=== PATIENT | female | born 1940 | race Caucasian/White ===

== ENCOUNTER 2020-02-13 12:47 | Outpatient (CLI) | payer MEDICARE, SELFPAY ==
--- NOTE | 2020-02-13 12:56 | MM_ITS ---
WS: [id number] BILATERAL DIGITAL SCREENING MAMMOGRAPHY WITH CAD CLINICAL INFORMATION: SCREEN HISTORY: Screening mammogram. No current complaints. COMPARISON: TECHNIQUE: Bilateral CC and MLO views. FINDINGS: The breasts are composed of heterogeneous fibroglandular density tissue, which can limit the detectio n of small underlying mass lesions. No suspicious mass, asymmetry, calcifications, or architectural d istortion. No evidence of malignancy. Vascular calcification. Stable ovoid nodule outer left breast m easuring 4 mm. Left breast biopsy marker. MM/[id number] IMPRESSION: BI-RADS: 2-Benign FOLLOW UP: 1 Year Follow-up Recommend return to annual screening mammography.
== END 2020-02-13 12:48 | disposition home or self-care (01) ==
LOC: RADSHAW 12:50
PROVIDERS: PCP Internal Medicine; Visit Provider Internal Medicine
DX: Z12.31 Encounter for screening mammogram for malignant neoplasm of breast (principal)
CPT/HCPCS: 77067

== ENCOUNTER 2021-02-16 08:28 | Outpatient (CLI) | payer MEDICARE, SELFPAY ==
--- NOTE | 2021-02-16 08:37 | MM_ITS ---
WS: [id number] BILATERAL DIGITAL SCREENING MAMMOGRAPHY WITH CAD CLINICAL INFORMATION: SCREENING HISTORY: Screening mammogram. No current complaints. COMPARISON: February 13, 2020 TECHNIQUE: Bilateral CC and MLO views. FINDINGS: The breasts are composed of heterogeneous fibroglandular density tissue, which can limit the detectio n of small underlying mass lesions. No suspicious mass, asymmetry, calcifications, or architectural d istortion. No evidence of malignancy. Punctate and vascular calcifications. Biopsy clip left breast. MM/[id number] IMPRESSION: BI-RADS: 2-Benign FOLLOW UP: 1 Year Follow-up Recommend return to annual screening mammography.
== END 2021-02-16 08:29 | disposition home or self-care (01) ==
LOC: RADSHAW 08:34
PROVIDERS: PCP Internal Medicine; Visit Provider Internal Medicine
DX: Z12.31 Encounter for screening mammogram for malignant neoplasm of breast (principal)
CPT/HCPCS: 77067

== ENCOUNTER 2022-02-22 09:12 | Outpatient (CLI) | payer MEDICARE, SELFPAY ==
--- NOTE | 2022-02-22 09:27 | MM_ITS ---
WS: [id number] BILATERAL SCREENING DIGITAL TOMOSYNTHESIS MAMMOGRAM WITH CAD HISTORY: SCREENING COMPARISON: 12/24/2017, 01/02/2019, 02/13/2020 and 02/16/2021 Bilateral CC and MLO views with tomosynthesis and synthetic mammography submitted. Computer aided det ection analyzed. Breast composition: There are scattered areas of fibroglandular density. No suspicious masses, microc alcifications or architectural distortion. Long-term stability of the 2.0 x 1.4 x 2.1 cm mass in the upper outer quadrant of the RIGHT breast. Benign vascular calcifications in each breast. MM/[place] [id number] IMPRESSION: BI-RADS: 2-Benign FOLLOW UP: 1 Year Follow-up
== END 2022-02-22 09:13 | disposition home or self-care (01) ==
PROVIDERS: PCP Internal Medicine; Visit Provider Internal Medicine
DX: Z12.31 Encounter for screening mammogram for malignant neoplasm of breast (principal)
CPT/HCPCS: 77063; 77067

== ENCOUNTER → 2022-10-05 16:27 | Outpatient (BNVA) | payer MEDICARE, SELFPAY | PROVIDERS: PCP Internal Medicine; Visit Provider Obstetrics & Gynecology | DX: N95.0 Postmenopausal bleeding (principal) | CPT/HCPCS: 81000 ==

== ENCOUNTER 2023-01-21 19:42 | Emergency (ER) | payer MEDICARE, SELFPAY ==
--- NOTE | 2023-01-21 19:43 | XRR_ITS ---
PROCEDURE INFORMATION: Exam: XR Right Foot Exam date and time: 01/21/2023 8:10 PM Age: 82 years old Clinical indication: Injury or trauma; Fall; Blunt trauma; Right; Patient HX: Patient tripped and fell today. C/O foot pain with contusion and swelling to near entire dorsal surface across metatarsals. TECHNIQUE: Imaging protocol: Radiologic exam of the right foot. Views: 3 or more views. COMPARISON: No relevant prior studies available. FINDINGS: Bones/joints: Fractured bone fragment at the medial margin of 1st metatarsal tarsal joint. There is malalignment of the 1st metatarsal tarsal joint with a mild degree of lateral shifting of the 1st metatarsal bone relative to the medial cuneiform bone. Soft tissues: Soft tissue swelling over the dorsum of the foot. XR/XR foot RT min 3V* [id number] IMPRESSION: Avulsion fracture from the 1st metatarsal base or the medial cuneiform bone is suspected. There is mild subluxation of the 1st MTT joint raising suspicion for Lisfranc ligamentous injury. Recommend weight-bearing view correlation.
--- NOTE | 2023-01-21 19:43 | XRR_ITS ---
PROCEDURE INFORMATION: Exam: XR Right Ankle Exam date and time: 01/21/2023 8:10 PM Age: 82 years old Clinical indication: Injury or trauma; Fall; Blunt trauma; Ankle; Right; Patient HX: Patient tripped and fell today. C/O foot pain with contusion and swelling to near entire dorsal surface across metatarsals. TECHNIQUE: Imaging protocol: Radiologic exam of the right ankle. Views: 3 or more views. COMPARISON: No relevant prior studies available. FINDINGS: Bones/joints: Normal ankle mortise alignment. No ankle fracture. Soft tissues: Soft tissue swelling. XR/XR ankle RT min 3V* [id number] IMPRESSION: No osseous injury to the ankle apparent.
--- NOTE | 2023-01-21 19:51 | ED_ITS ---
HPI - Extremity Injury (Lower) General: Chief Complaint: Extremity Injury, Lower Stated Complaint: right foot injury Time Seen by Provider: 01/21/23 19:43 Source: patient Mode of arrival: ambulatory Limitations: no limitations History of Present Illness: 82-year-old female states she tripped over nice chest just prior to arrival and injured her right foot she has pain over the lateral portion of the top of her foot she rates a 7 out of 10 she states is not able to bear weight she does have a contusion. She has some mild ankle pain denies any other injuries denies hitting her head. Review of Systems Const: Denies: fever(s) or chills ENMT: Denies: throat pain or dental pain Card: Denies: chest pain Resp: Denies: dyspnea GI: Denies: abdominal pain, nausea, vomiting or diarrhea Musc: Reports: extremity pain; Denies: neck pain or back pain Skin/Breast: Denies: rash Neuro: Denies: headache(s) PFS ED PFSH: Medical History Hx of skin cancer, basal cell Hypertension Type 2 diabetes mellitus Surgical History H/O cosmetic surgery eye lift in 1990, ear lift 1990, contact lense implantation H/O hand surgery H/O: hysterectomy History of right oophorectomy Family History Father Hypertension Denies family history of Colon cancer Ovarian cancer Diabetes Heart disease Breast cancer Family history of thyroid problem Uterine cancer Stroke Physical Exam Const: COMMON NORMALS: no acute distress and patient oriented x3 HENMT: COMMON NORMALS: normocephalic and atraumatic HEAD & SCALP: normocephalic and atraumatic Eye: COMMON NORMALS: conjunctivae normal CONJUNCTIVA: Yes conjunctivae normal Neck/C-Spine: COMMON NORMALS: supple Chest: COMMONS NORMALS: normal inspection of the chest Resp: COMMON NORMALS: normal respiratory effort Extremity: NARRATIVE EXTREMITY EXAM: Contusion and tenderness over right foot Neuro: COMMON NORMALS: patient oriented x3 Psych: COMMON NORMALS: mental status grossly normal Skin: COMMON NORMALS: no rashes or lesions noted GENERAL SKIN EXAM: no rashes or lesions noted Course Vital Signs: Vital signs: Vital Signs Temperature 97.6 F 01/21/23 19:53 Pulse Rate 69 01/21/23 19:53 Respiratory Rate 17 01/21/23 19:53 Blood Pressure 171/67 01/21/23 19:53 Pulse Oximetry 95 01/21/23 19:53 Oxygen Delivery Me thod Room Air 01/21/23 19:53 MDM - Extremity Injury (Lower) Medical Decision Making Patient presents here with a right foot fracture metatarsal fracture patient placed in a splint is to use crutches nonweightbearing she is to follow-up with orthopedics return if worsening she understands agrees to plan. Medical Records I reviewed the patient's medical records. Lab Data I reviewed the patient's lab results. Discharge Plan Discharge Condition: Stable Prescriptions: No Action amlodipine 5 mg tablet 5 mg PO BID oujcfigf-kazi-vtvntq-hyalur ac [id number] mg tablet 1 tab PO BID Collagen Plus Vitamin C 125-740 mg capsule 1 cap PO DAILY melatonin 5 mg capsule 5 mg PO DAILY glipizide 5 mg tablet 5 mg PO DAILY estradiol [Estrace] 0.01 % (0.1 mg/gram) cream 0.5 g vaginal DAILY Qty: 42.5 1RF Rx Instructions: for nightly for 14 days and then twice weekly after that. lovastatin 40 mg tablet 40 mg PO QDAY levothyroxine 25 mcg capsule 137 mcg PO DAILY losartan-hydrochlorothiazide 100-12.5 mg tablet 2 tab PO DAILY Referrals: Tyree Valles DO [Primary Care Provider] - Coding Level of Care Code ED Pattern Chain Builder for Ab Garces
[2023-01-21 19:53] VITALS: BP 171/67; PULSE 69; RESP 17; TEMP 36.4; O2SAT 95; BMI 23.5
[2023-01-21] MEDS: HYDROcodone-acetaminophen 5-325 mg Tablet 1 TAB PO (20:35)
[2023-01-21 21:19] VITALS: BP 152/75; PULSE 64; RESP 18; O2SAT 96
--- NOTE | 2023-01-22 07:29 | DCPLANNER ---
Addendum entered by Zaida Blunt 01/24/23 11:13: Patient has a follow up appointment scheduled for Sunday, January 29, 2023 at 2:[address] Rodney at ortho. Original Note: urban renewal manager had message to schedule a follow up appointment for patient with ortho. urban renewal manager sent patients information to the front office staff at ortho. Patients information will be printed and reviewed. Clinic will call patient with appointment information.
== END 2023-01-21 21:20 | disposition home or self-care (01) ==
PROVIDERS: Emergency Provider Emergency Medicine; PCP Internal Medicine
DX: S92.311A Displaced fracture of first metatarsal bone, right foot, initial encounter for closed fracture (principal); Z79.84 Long term (current) use of oral hypoglycemic drugs; I10 Essential (primary) hypertension; E11.9 Type 2 diabetes mellitus without complications; W18.09XA Striking against other object with subsequent fall, initial encounter
CPT/HCPCS: 73610; 73630; 99283; E0114

== ENCOUNTER 2023-01-28 16:39 | Emergency (ER) | payer MEDICARE, SELFPAY ==
[2023-01-28 16:45] VITALS: BP 165/63; PULSE 72; TEMP 37.1; O2SAT 97
--- NOTE | 2023-01-28 17:06 | W.ED.EXTPRO ---
HPI - Extremity Problem General: Chief complaint: Extremity Injury, Lower Stated complaint: Right foot broke swelling/pain Time Seen by Provider: 01/28/23 16:46 History of Present Illness: 82-year-old female presents to the emergency department with 24 hours of pain in her right foot. She says she broke a dish and had an associated fall back on January 21, approximately 1 week ago. The x-ray report is transcribed below. She was in a posterior splint and has been nonweightbearing. Yesterday she started noticing some nervelike sharp shooting pains and throbbing in her right foot. She says this is unusual because she has had very little pain up until that point. Last night she also started having sweating in the middle of the night. She did not check her temperature. Today she took down the splint and wraps and saw that there was some discoloration to the top of her right foot. I took it off here in the emergency department and noticed that she has bright erythema, swelling, tenderness, warmth to the top of her right foot. After further discussion, we found out that when the dish broke it did cut her fourth toe. It was a relatively minor cut and it had already scabbed. However, she remembers that her foot was not washed before splinting. Right Foot Xray 01/21/23: Avulsion fracture from the 1st metatarsal base or the medial cuneiform bone is suspected. There is mild subluxation of the 1st MTT joint raising suspicion for Lisfranc ligamentous injury. Recommend weight-bearing view correlation. Review of Systems General: Reports: 10 or more systems reviewed and unremarkable except in HPI and below Const: Denies: body aches Resp: Denies: dyspnea or productive cough GI: Denies: abdominal pain, nausea, vomiting or diarrhea Musc: Denies: neck pain or back pain Neuro: Denies: numbness in extremities, weakness in extremities or lack of coordination PFSH ED PFSH: Medical History Hx of skin cancer, basal cell Hypertension Type 2 diabetes mellitus Surgical History H/O cosmetic surgery eye lift in 1990, ear lift 1990, contact lense implantation H/O hand surgery H/O: hysterectomy History of right oophorectomy Family History Father Hypertension Denies family history of Colon cancer Ovarian cancer Diabetes Heart disease Breast cancer Family history of thyroid problem Uterine cancer Stroke Physical Exam Const: COMMON NORMALS: no limitations, alert and well nourished EXAM LIMITATIONS: no altered mental status HENMT: COMMON NORMALS: normocephalic, atraumatic and external ears normal HEAD & SCALP: normocephalic and atraumatic EXTERNAL EAR: Yes external ears normal MOUTH: no muffled voice Eye: COMMON NORMALS: conjunctivae normal and no scleral icterus CONJUNCTIVA: Yes conjunctivae normal Neck/C-Spine: COMMON NORMALS: no JVD GENERAL: Yes normal visual inspection and Yes trachea midline Resp: COMMON NORMALS: normal respiratory effort, No use of accessory muscles and clear to auscultation bilaterally AUSCULTATION: clear to auscultation bilaterally Cardio: COMMON NORMALS: no JVD, regular rate and regular rhythm RATE: regular rate RHYTHM: regular rhythm GI: COMMON NORMALS: Soft to palpation and non-tender PALPATION: Yes Soft to palpation and No Guarding due to palpation present (GI) Extremity: NARRATIVE EXTREMITY EXAM: Right lower extremity: Right knee calf and ankle are unremarkable. There is edema primarily of the dorsum of the right foot. There is bright erythema, warmth, tenderness to light touch. No crepitus. There is a small linear abrasion with scab on her fourth toe. No other wounds. DP pulse is 2+. Cap refill in the toes is normal. She can move her toes but it causes tenderness. Neuro: COMMON NORMALS: moves all extremities, no focal motor deficits and no sensory deficits noted SENSORIUM/ORIENTATION: Yes alert SPEECH: speech normal Psych: COMMON NORMALS: mental status grossly normal, Normal thought process present, cooperative, normal affect and speech normal SPEECH: Yes normal speech THOUGHT PROCESS: Normal thought process present Skin: COMMON NORMALS: turgor normal and no jaundice GENERAL SKIN EXAM: turgor normal Course Vital Signs: Vital signs: Vital Signs Temperature 98.7 F 01/28/23 16:45 Pulse Rate 69 01/28/23 17:50 Respiratory Rate 16 01/28/23 17:48 Blood Pressure 140/71 01/28/23 17:50 Pulse Oximetry 97 01/28/23 17:50 Oxygen Delivery Me thod Room Air 01/28/23 17:50 MDM - Extremity (Nontraumatic) Medical Decision Making There is the appearance of cellulitis complicating her foot injury. DP pulse is 2+ and although there is edema, it is soft--> low suspicion for compartment syndrome. I don't appreciate any FBs on palpation--she dropped a dish so may or may not be radio-opaque. The only skin defect is on toe and appears superficial. Patient has a f/u with orthopedic surgery tomorrow. We discussed options: Going to get another xray today to eval for FBs and r/o gas. If okay, then plan to give IM rocephin 2gm, start oral doxycycline, take pictures of foot to track over time, elevate, ice, clean foot with chlorhexidine, then re-wrap and splint. Continue NWB. F/u with otho tomorrow. If getting worse--return to ER and possibly admit. X-rays. I do not see any foreign bodies. The suspected avulsion fracture is confirmed as there is a bony defect on the second metatarsal. There is soft tissue edema. I do not see any free air in the tissue. Patient has an appointment at 2:[address] Ramsey's office. Plan will remain the same Discharge Plan Discharge Patient Disposition: Home Clinical Impression: Cellulitis of foot, right, Lisfranc's sprain, Avulsion fracture of metatarsal bone of right foot Condition: Stable Prescriptions: New doxycycline hyclate 100 mg tablet 100 mg PO BID 10 Days Qty: 20 0RF Senna with Docusate Sodium 8.6-50 mg tablet 1 tab-cap PO BID PRN (Reason: constipation) 10 Days Qty: 20 0RF ondansetron 4 mg tablet,disintegrating 4 mg PO Q6H PRN (Reason: nausea and vomiting) Qty: 14 0RF No Action amlodipine 5 mg tablet 5 mg PO BID jojpcgzf-nicz-wsxwrs-hyalur ac [id number] mg tablet 1 tab PO BID Collagen Plus Vitamin C 125-740 mg capsule 1 cap PO DAILY melatonin 5 mg capsule 5 mg PO DAILY glipizide 5 mg tablet 5 mg PO DAILY estradiol [Estrace] 0.01 % (0.1 mg/gram) cream 0.5 g vaginal DAILY Qty: 42.5 1RF Rx Instructions: for nightly for 14 days and then twice weekly after that. lovastatin 40 mg tablet 40 mg PO QDAY levothyroxine 25 mcg capsule 137 mcg PO DAILY losartan-hydrochlorothiazide 100-12.5 mg tablet 2 tab PO DAILY hydrocodone-acetaminophen 5-325 mg tablet 1 tab PO Q6H PRN (Reason: pain) Qty: 14 0RF Discharge Orders: Discharge ED (Routine); Ordered 01/28/23 Ordered By: Jacky Plummer Referrals: Gavin Ramsey DO [Physician] - 01/29/23 2:00 pm Tyree Valles DO [Primary Care Provider] - Patient Instructions: Cellulitis (ED), Opioid Safety, Pain Management Activity Restrictions/Additional Instructions: 1. Elevate above the level of the heart and ice as frequently as you can, ideally for 20 to 30 minutes 4 times per day. 2. Take doxycycline with food twice a day. 3. Do not bear weight on the right leg. 4. Follow-up with Dr. Ramsey's clinic tomorrow at 2 PM 5. Return to the emergency department if the swelling or redness or pain are getting worse or you develop a fever Coding Level of Care Code ED Pipe Testing Technician for Ab Garces
--- NOTE | 2023-01-28 17:14 | XRR_ITS ---
PROCEDURE INFORMATION: Exam: XR Right Foot Exam date and time: 01/28/2023 5:20 PM Age: 82 years old Clinical indication: Swelling, leg or foot; Patient HX: Swelling and redness to foot with possible glass debris; Additional info: Trauma, re-eval for swelling/redness, ? glass fb TECHNIQUE: Imaging protocol: Radiologic exam of the right foot. Views: 3 or more views. COMPARISON: CR (LOW EXM, ) 01/21/2023 8:10 PM FINDINGS: Bones/joints: Calcific density is seen medial to the tarsal 1st metatarsal level when correlated with prior exam. This could indicate avulsion injury at this level as noted with prior exam. Previously noted mild subluxation at this level is not readily demonstrated with today's exam. No fracture or dislocation is seen about the right foot, otherwise. Mild degenerative change. Soft tissues: Soft tissue swelling is seen on the lateral view. No radiopaque foreign body soft tissue density. XR/XR foot RT min 3V* [id number] IMPRESSION: 1. Calcific density medial to the tarsal 1st metatarsal level is again seen, when correlated with prior exam 01/21/2023, possible previous avulsion. No fracture or dislocation otherwise. 2. Soft tissue swelling noted on the lateral view. No radiopaque soft tissue foreign body density is seen.
[2023-01-28 17:48] VITALS: RESP 16; O2SAT 96
[2023-01-28] MEDS: oxyCODONE-APAP 10-325 mg Tablet 1 TAB PO (17:48)
[2023-01-28] MEDS: doxycycline 100 mg Tablet PO ×2 (17:48→20:10)
[2023-01-28] MEDS: naproxen 500 mg Tablet PO (17:49)
[2023-01-28 17:50] VITALS: BP 140/71; PULSE 69; O2SAT 97
[2023-01-28 20:05] VITALS: BP 137/72; PULSE 60; RESP 17; O2SAT 95
--- NOTE | 2023-01-28 20:08 | PC.NURSE ---
this nurse cleaned R foot with chlorhexidine and re-wrapped with padding and trey bandage.
--- NOTE | 2023-01-28 20:09 | PC.NURSE ---
sent pt home doxycycline 1 tab 100mg
== END 2023-01-28 20:10 | disposition home or self-care (01) ==
PROVIDERS: Emergency Provider Emergency Medicine; PCP Internal Medicine
DX: L03.115 Cellulitis of right lower limb (principal); S93.691A Other sprain of right foot, initial encounter; S92.321A Displaced fracture of second metatarsal bone, right foot, initial encounter for closed fracture; W19.XXXA Unspecified fall, initial encounter
CPT/HCPCS: 73630; 96372; 99284; J0696

== ENCOUNTER → 2023-01-29 13:55 | Outpatient (BNVA) | payer MEDICARE, SELFPAY | PROVIDERS: PCP Internal Medicine; Visit Provider Podiatrist Foot & Ankle Surgery | DX: S93.324A Dislocation of tarsometatarsal joint of right foot, initial encounter; S92.321A Displaced fracture of second metatarsal bone, right foot, initial encounter for closed fracture; S92.311A Displaced fracture of first metatarsal bone, right foot, initial encounter for closed fracture; W19.XXXA Unspecified fall, initial encounter | CPT/HCPCS: 99204 ==

== ENCOUNTER 2023-02-01 05:47 | Day surgery (SDC) | payer MEDICARE, SELFPAY ==
[2023-01-31 10:22] VITALS: BMI 23.5
[2023-02-01] VITALS (7 sets, daily range): BP systolic 123–151; BP diastolic 51–74; PULSE 65–68; RESP 16–18; TEMP 35.8–36.5; O2SAT 94–100; BMI 23.5
--- NOTE | 2023-02-01 | XR_ITS ---
WS: [id number] C-ARM RADIOGRAPHS RIGHT FOOT; 5 IMAGES HISTORY: right foot surgery, or pic COMPARISON: None available. Intraoperative plate and screw fixation proximal first and second tarsal metatarsal articulations. IMPRESSION: Intraoperative imaging during fixation across the first and second tarsometatarsal articulations.
[2023-02-01 06:29] LABS: Glucose Point of Care 171 mg/dL (70-110)
[2023-02-01] MEDS: gabapentin 300 mg Capsule PO (06:29)
[2023-02-01] MEDS: CELEcoxib 200 mg Capsule 400 MG PO (06:29)
[2023-02-01] MEDS: sodium chloride 0.9% 1,000 ML 30 ML IV (06:30)
--- NOTE | 2023-02-01 06:31 | W.PM.OPSUD ---
Surgery/Procedure H&P Update DATE OF PROCEDURE: February 01, 2023 DATE H&P PERFORMED: 01/29/23 H&P UPDATE INFORMATION: I have reviewed H&P completed within last 30 days, I have examined patient prior to procedure, No changes to prior documentation and H&P is in [facility]MR on date indicated PREOP DIAGNOSIS: Right foot Lisfranc injury PLANNED PROCEDURE: Operation Date: 02/01/23 07:00 Proposed Procedures p Fusion of right first and second tarsometatarsal joint 42517,02827,M25.374,S93.311A Open reduction internal fixation right third and fourth tarsometatarsal joint(Right) - Miguel Rodney DPM
[2023-02-01] MEDS: ceFAZolin 2,000 MG in sodium chloride 0.9% (plus) 50 ML 100 MG IV (07:07)
[2023-02-01] MEDS: BUPivacaine liposome 13.3 mg/mL SDV 10 mL 266 MG INFILTRATI (08:39)
--- NOTE | 2023-02-01 08:47 | ANES.PREANE2 ---
Pre-Anesthetic Assessment Height/Weight: Height 1.7 m Weight 68.039 kg Temp Pulse Resp BP Pulse Ox O2 Del Method 97.3 F L 66 16 151/74 97 Room Air 02/01/23 06:15 02/01/23 06:15 02/01/23 06:15 02/01/23 06:15 02/01/23 06:15 02/01/23 06:15 Preop Diagnosis: Right foot Lisfranc injury Operation Date: 02/01/23 07:00 Proposed Procedures p Fusion of right first and second tarsometatarsal joint 64739,62471,M25.374,S93.311A Open reduction internal fixation right third and fourth tarsometatarsal joint(Right) - Miguel Rodney DPM Familial anesthetic complications: none Was Beta Ned taken within 24 hours: N/A Was Clonidine taken within 24 hours: N/A Last intake: Intake Last Liquid Date 01/31/23 Last Liquid Time 23:00 Last Solid Date 01/31/23 Last Solid Time 21:00 Social No alcohol and No tobacco Exam alert, oriented x 3, clear to auscultation bilaterally and regular rate & rhythm Airway Submandibular: within normal limits Cervical ROM: within normal limits Mallampati: Class II Dentition: caps CV/HEM Hypertension Metabolic Diabetes Mellitus, Hyperlipidemia and Thyroid Disease Anesthetic Plan ASA status: 2 Anesthesia: General and Regional (specify below) (right pop blk) Medications/Allergies Home Medications Medication Instructions Recorded Confirmed Last Taken Type lovastatin 40 mg tablet 40 mg PO QDAY 06/05/19 01/31/23 01/31/23 History amlodipine 5 mg tablet 5 mg PO BID 08/23/20 01/31/23 01/31/23 History ascorbic acid 125 mg-collagen, 1 cap PO DAILY 08/23/20 01/31/23 01/31/23 History hydrolyzed 740 mg capsule (Collagen Plus Vitamin C) estradiol 0.01% (0.1 mg/gram) 0.5 g vaginal DAILY #42.5 grams 08/23/20 01/31/23 01/31/23 Rx vaginal cream (Estrace) glipizide 5 mg tablet 5 mg PO DAILY 08/23/20 01/31/23 01/31/23 History ursopmgeqy-jhrop-xlmffs-hyaluronic 1 tab PO BID 08/23/20 01/31/23 01/31/23 History acid 500 mg-100 mg-500 mg-40 mg tab levothyroxine 25 mcg capsule 137 mcg PO DAILY 08/23/20 01/31/23 01/31/23 History losartan 100 2 tab PO DAILY 08/23/20 01/31/23 01/31/23 History mg-hydrochlorothiazide 12.5 mg tablet melatonin 5 mg capsule 5 mg PO DAILY 08/23/20 01/31/23 01/31/23 History doxycycline hyclate 100 mg tablet 100 mg PO BID 10 days #20 tabs 01/28/23 01/31/23 01/31/23 Rx ondansetron 4 mg disintegrating 4 mg PO Q6H PRN nausea and 01/28/23 01/31/23 01/31/23 Rx tablet vomiting #14 tabs sennosides 8.6 mg-docusate sodium 1 tab-cap PO BID PRN constipation 01/28/23 01/31/23 01/31/23 Rx 50 mg tablet (Senna with Docusate 10 days #20 tabs Sodium) hydrocodone 5 mg-acetaminophen 325 1 tab PO Q6H PRN pain 7 days #28 01/29/23 01/31/23 01/31/23 Rx mg tablet tabs hydrocodone 10 mg-acetaminophen 1 tab PO Q6H PRN pain 7 days #28 02/01/23 Unknown Rx 325 mg tablet tabs Allergies Allergy/AdvReac Type Severity Reaction Status Date / Time procaine [From Novocain] Allergy hallucinati Verified 01/31/23 10:19 ons Current Medications Generic Name Dose Route Start Last Admin Trade Name Calebq PRN Reason Stop Dose Admin Sodium Chloride 1,000 mls @ 30 mls/hr 02/01/23 06:00 02/01/23 06:30 Sodium Chloride 0.9% IV 02/02/23 05:59 30 mls/hr .Q24H REBEKAH Administration PFSH Anesthesia Medical History Hx of skin cancer, basal cell Hypertension Type 2 diabetes mellitus Surgical History H/O cosmetic surgery eye lift in 1990, ear lift 1990, contact lense implantation H/O hand surgery H/O: hysterectomy History of right oophorectomy Family History Father Hypertension Denies family history of Colon cancer Ovarian cancer Diabetes Heart disease Breast cancer Family history of thyroid problem Uterine cancer Stroke Data Anesthesia Cardiac Studies: No Data to Display Anesthesia Procedures Nerve Block Nerve Block 1: Main Anesthesia: general anesthesia Time Out Performed: Yes Nerve block location: popliteal (right) Anesthesia monitors applied: pulse oximetry, EKG, BP cuff and oxygen Nerve block position: supine Anesthetic Used: ropivicaine 0.5% Amount of anesthesia used (mL): 30 Ultrasound used to: recognize landmarks Nerve Stimulator Used?: No Interscalene/Femoral BLK: 4 stimuplex 21 g needle used for position and inplane approach Injection: neg aspiration of heme Patient Tolerated Procedure: well Complications: none
--- NOTE | 2023-02-01 08:59 | W.PM.BPON ---
Date of Procedure: 02/01/23 Surgeon: Miguel Rodney DPM Aerial Sprayer(s): Dayne Rashid Procedure(s) performed: Arthrodesis of the first and second tarsometatarsal joint right foot. Findings of the procedure(s): Fracture dislocation with gross instability right first and second tarsometatarsal joint. Estimated blood loss: 5 Specimen(s) removed: None Post-operative diagnosis: Right Lisfranc fracture dislocation
--- NOTE | 2023-02-01 09:00 | P.OP_ITS ---
Operative Report Date of procedure: February 01, 2023 Pre-op diagnosis: Right foot Lisfranc fracture dislocation Post-op diagnosis: Same Procedure done: Fusion of right first and second tarsometatarsal joint. CPT code 57056 Implants: [employer] Tim[employer] Lapidus plate and 3.5 mm locking and nonlocking screws with 4 mm homerun screw [employer] straight angled plate with 2.7 mm locking and nonlocking screws V92 1 cc provided by Charla Surgeon: Miguel Rodney DPM 71
[2023-02-01] MEDS: HYDROcodone-acetaminophen 10-325 mg Tablet 1 TAB PO (09:41)
--- NOTE | 2023-02-01 14:00 | ANE.PACU2 ---
Inpatient post-anesthesia follow up: Airway intact: Yes Vital signs: Temperature 97.1 F Pulse Rate 68 Respiratory Rate 18 Blood Pressure 123/57 Pulse Oximetry 96 Oxygen Delivery Me thod Room Air Oxygen Flow Rate 8 Fraction of Inspir ed Oxygen Hydration adequate: Yes Nausea and vomiting: No Pain level: 2 Mental status: Baseline
== END 2023-02-01 10:20 | disposition home or self-care (01) ==
PROVIDERS: PCP Internal Medicine; Visit Provider Podiatrist Foot & Ankle Surgery
PROC: (CPT 28740; principal; 2023-02-01 07:00)
DX: S93.324A Dislocation of tarsometatarsal joint of right foot, initial encounter (principal); W19.XXXA Unspecified fall, initial encounter; I10 Essential (primary) hypertension; E11.9 Type 2 diabetes mellitus without complications; E78.5 Hyperlipidemia, unspecified
CPT/HCPCS: 28615; 28730; 36416; 73630; 76000; 82962; C1713; C9290; J0690; J1100; J2405; J2704; J2795; J3010; J7030

== ENCOUNTER → 2023-02-15 15:10 | Outpatient (BNVA) | payer MEDICARE, SELFPAY | PROVIDERS: PCP Internal Medicine; Visit Provider Podiatrist Foot & Ankle Surgery | DX: Z48.89 Encounter for other specified surgical aftercare; S93.326D Dislocation of tarsometatarsal joint of unspecified foot, subsequent encounter; X58.XXXD Exposure to other specified factors, subsequent encounter; Z46.89 Encounter for fitting and adjustment of other specified devices | CPT/HCPCS: 73630; 97760; 99024; L4361 ==

== ENCOUNTER 2023-02-15 16:06 | Outpatient (CLI) | payer MEDICARE, SELFPAY | END 2023-02-15 16:07 | disposition home or self-care (01) | LOC: SPT 16:06 | PROVIDERS: PCP Internal Medicine; Visit Provider Podiatrist Foot & Ankle Surgery | DX: Z46.89 Encounter for fitting and adjustment of other specified devices (principal); S93.326D Dislocation of tarsometatarsal joint of unspecified foot, subsequent encounter; X58.XXXD Exposure to other specified factors, subsequent encounter | CPT/HCPCS: 97760; 99024; L4361 ==

== ENCOUNTER 2023-02-23 09:37 | Outpatient (CLI) | payer MEDICARE, SELFPAY ==
--- NOTE | 2023-02-23 10:02 | MM_ITS ---
WS: [id number] BILATERAL SCREENING DIGITAL TOMOSYNTHESIS MAMMOGRAM WITH CAD HISTORY: Z12.39 - Encounter for other screening for malignant neop... COMPARISON: 02/22/2022 and 02/16/2021 Bilateral CC and MLO views with tomosynthesis and synthetic mammography submitted. Computer aided det ection analyzed. Breast composition: There are scattered areas of fibroglandular density. No suspicious masses, microc alcifications or architectural distortion. Benign breast arterial calcifications. IMPRESSION: MM/[place] [id number] BI-RADS: 2-Benign FOLLOW UP: 1 Year Follow-up
== END 2023-02-23 09:38 | disposition home or self-care (01) ==
LOC: RAD 09:39
PROVIDERS: PCP Internal Medicine; Visit Provider Obstetrics & Gynecology
DX: Z12.31 Encounter for screening mammogram for malignant neoplasm of breast (principal)
CPT/HCPCS: 77063; 77067

== ENCOUNTER → 2023-03-01 13:46 | Outpatient (BNVA) | payer MEDICARE, SELFPAY | PROVIDERS: PCP Internal Medicine; Visit Provider Podiatrist Foot & Ankle Surgery | DX: S93.321D Subluxation of tarsometatarsal joint of right foot, subsequent encounter; X58.XXXD Exposure to other specified factors, subsequent encounter | CPT/HCPCS: 73630; 99024 ==

== ENCOUNTER → 2023-03-15 14:43 | Outpatient (BNVA) | payer MEDICARE, SELFPAY | PROVIDERS: PCP Internal Medicine; Visit Provider Podiatrist Foot & Ankle Surgery | DX: Z98.890 Other specified postprocedural states | CPT/HCPCS: 73630; 99024 ==

== ENCOUNTER → 2023-03-29 15:28 | Outpatient (BNVA) | payer MEDICARE, SELFPAY | PROVIDERS: PCP Internal Medicine; Visit Provider Podiatrist Foot & Ankle Surgery | DX: Z98.890 Other specified postprocedural states (principal) | CPT/HCPCS: 73630; 99024 ==

== ENCOUNTER → 2023-05-03 14:00 | Outpatient (BNVA) | payer MEDICARE, SELFPAY | PROVIDERS: PCP Internal Medicine; Visit Provider Podiatrist Foot & Ankle Surgery | DX: Z98.890 Other specified postprocedural states (principal) | CPT/HCPCS: 73630; 99024 ==

== ENCOUNTER → 2023-07-19 13:47 | Outpatient (BNVA) | payer MEDICARE, SELFPAY | PROVIDERS: PCP Internal Medicine; Visit Provider Podiatrist Foot & Ankle Surgery | DX: Z98.890 Other specified postprocedural states (principal) | CPT/HCPCS: 73630; 99024 ==

== ENCOUNTER → 2023-11-14 09:53 | Outpatient (BNVA) | payer MEDICARE, SELFPAY | PROVIDERS: PCP Internal Medicine; Visit Provider Nurse Practitioner Women's Health | DX: R30.0 Dysuria (principal); N39.0 Urinary tract infection, site not specified | CPT/HCPCS: 84315; 87086 ==

== ENCOUNTER 2024-03-10 15:57 | Outpatient (CLI) | payer MEDICARE, SELFPAY ==
--- NOTE | 2024-03-10 16:21 | MM_ITS ---
WS: [id number] VIEWS: MLO and CC views both breasts. 3D digital tomosynthesis is also included in this exam. Comparison made with prior exam of 06/17/2013, 07/21/2014, 11/10/2015, 12/14/2016, 12/24/2017, 01/02/2019, , 02/16/2021, 02/22/2022, 02/23/2023.. Findings: There are scattered areas of fibroglandular density. Stable appearing bilateral nodules. MM/MM scr BI tomosynthesis [id number] Impression: BI-RADS: 2 - Benign FOLLOW-UP: 1 Year Follow-up This mammogram was also analyzed by the Computer Aided Detection System R2 Imag e Knock Out Hand.
== END 2024-03-10 15:58 | disposition home or self-care (01) ==
LOC: RAD 16:01
PROVIDERS: PCP Internal Medicine; Visit Provider Internal Medicine
DX: Z12.31 Encounter for screening mammogram for malignant neoplasm of breast (principal); R92.323 Mammographic fibroglandular density, bilateral breasts
CPT/HCPCS: 77063; 77067

== ENCOUNTER 2024-08-05 15:04 | Outpatient (CLI) | payer MEDICARE, SELFPAY ==
--- NOTE | 2024-08-05 16:07 | MR_ITS ---
WS: [id number] MRI LEFT KNEE NONCONTRAST TECHNIQUE: Axial PD, coronal PD fat sat, coronal PD, sagittal PD, and sagittal PD fat-sat images obtained. CLINICAL INFORMATION: pain COMPARISON: None. FINDINGS: Distal quadriceps and patella tendons are intact. Hypertrophic patella. Small amount of prepatellar and infrapatellar soft tissue edema. ACL and PCL appear intact. 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 Normal medial and lateral patellar retinaculum. No significant joint effusion. 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 Small lobulated popliteal cyst. Incidental ligament of Sutton. Normal lateral collateral ligament. Fluid and edema along the medial collateral ligament compatible with grade 1-2 injury. Normal popliteus. Chronic thinning of the medial and lateral meniscus. MR/MR knee LT wo con* [id number] IMPRESSION: 1. 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 2. Advanced tricompartment arthritis. 3. ACL and PCL are intact. 4. No acute appearing meniscal tears. Chronic thinning of the medial lateral m eniscus. 5. Grade 1-2 injury medial collateral ligament with fluid and edema. Normal la teral collateral ligament. 6. No other acute findings. Outbridge grading: grade IV: full-thickness cartilage loss with underlying bone reactive changes
== END 2024-08-05 15:05 | disposition home or self-care (01) ==
PROVIDERS: PCP Electrodiagnostic Medicine; Visit Provider Nurse Practitioner Family
DX: M13.862 Other specified arthritis, left knee (principal); M22.42 Chondromalacia patellae, left knee; R93.6 Abnormal findings on diagnostic imaging of limbs; M71.22 Synovial cyst of popliteal space [Baker], left knee
CPT/HCPCS: 73721

== ENCOUNTER → 2024-08-22 09:16 | Outpatient (BNVA) | payer MEDICARE, SELFPAY | PROVIDERS: PCP Electrodiagnostic Medicine; Visit Provider Orthopaedic Surgery | DX: M25.562 Pain in left knee (principal); M25.569 Pain in unspecified knee; M13.862 Other specified arthritis, left knee; M22.42 Chondromalacia patellae, left knee | CPT/HCPCS: 73560; 73565; 99204 ==

== ENCOUNTER 2025-03-11 08:31 | Outpatient (CLI) | payer MEDICARE, SELFPAY ==
--- NOTE | 2025-03-11 08:36 | MM_ITS ---
WS: [id number] BILATERAL SCREENING DIGITAL TOMOSYNTHESIS MAMMOGRAM WITH CAD HISTORY: SCREENING COMPARISON: 07/21/2014, 02/16/2021, 02/22/2022, 03/10/2024 Bilateral CC and MLO views with tomosynthesis and synthetic mammography submitted. Computer aided detection analyzed. Breast composition: The breasts are heterogeneously dense, which may obscure small masses. No suspicious masses, microcalcifications or architectural distortion. Long-term stability of a large ovoid mass in the upper outer quadrant RIGHT breast at a middle depth measuring 2.5 x 2.2 x 2.2 cm. Very sligh t increase in size of this mass since 2014. There are additional benign calcifications in each breast. Arterial calcifications. No suspicious grouping of calcifications or new mass. MM/MM [facility] tomosynthesis [id number] IMPRESSION: BI-RADS: 2 - Benign FOLLOW UP: 1 Year Follow-up
== END 2025-03-11 08:32 | disposition home or self-care (01) ==
LOC: RAD 08:32
PROVIDERS: PCP Internal Medicine; Visit Provider Electrodiagnostic Medicine
DX: Z12.31 Encounter for screening mammogram for malignant neoplasm of breast (principal); R92.333 Mammographic heterogeneous density, bilateral breasts; N63.11 Unspecified lump in the right breast, upper outer quadrant; R92.1 Mammographic calcification found on diagnostic imaging of breast
CPT/HCPCS: 77063; 77067

== ENCOUNTER 2025-05-11 14:30 | Outpatient (CLI) | payer MEDICARE, SELFPAY ==
--- NOTE | 2025-05-11 14:43 | MR_ITS ---
WS: [id number] MRI HEAD WITH CONTRAST TECHNIQUE: Sagittal T1, T2 axial, axial susceptibility weighted imaging, and coronal T2 images were obtained. Pre and post-T1 axial and post T1 coronal images. ADC and FSPGR images. CLINICAL INFORMATION: COGNITIVE DECLINE COMPARISON: None. FINDINGS: Some imaging is degraded and some sequences were not performed due to susceptibility artifact from permanent dental work Moderate small vessel changes. Moderate parenchymal volume loss. Normal posterior fossa. Normal vascular flow voids at the skull base. No extra-axial fluid collections. Paranasal sinuses and mastoid air cells are well aerated. Small LEFT maxillary retention cyst. No hemosiderin on the susceptibly weighted images. Normal optic chiasm and pituitary infundibulum. Moderate symmetric atrophy temporal lobes and hippocampal formations. No abnormal gadolinium enhancement. Normal dural venous sinuses. Incidental venous angioma RIGHT inferior frontal lobe. MR/MR head wo/w con [id number] IMPRESSION: Some imaging is degraded and some sequences were not performed due to susceptibility artifact from permanent dental work 1. Moderate small vessel changes. Moderate parenchymal volume loss. 2. Moderate symmetric atrophy temporal lobes and hippocampal formations. 3. No hemosiderin on the susceptibility weighted images. 4. No abnormal gadolinium enhancement. 5. Incidental venous angioma RIGHT inferior frontal lobe. 6. No other acute findings.
[2025-05-11] MEDS: gadobenate dimeglumine 20 mL vial IV (15:25)
== END 2025-05-11 14:31 | disposition home or self-care (01) ==
PROVIDERS: PCP Electrodiagnostic Medicine; Visit Provider Electrodiagnostic Medicine
DX: R41.89 Other symptoms and signs involving cognitive functions and awareness (principal); G31.1 Senile degeneration of brain, not elsewhere classified; J34.1 Cyst and mucocele of nose and nasal sinus
CPT/HCPCS: 70553